=== PATIENT | female | born 1980 | race Caucasian/White ===

== ENCOUNTER 2018-12-01 00:33 | Emergency (ER) | payer SELFPAY ==
[~2018-12-01] VITALS: Ht 174 cm; Wt 82.0 kg
[~2018-12-01 00:33] MED LIST: AURALGAN OT; BACTRIM DS1 TAB PO; CORTISPORIN OTI10 ML AD; DOXYCYCL HYC100 MG PO; LORTAB 1010 MG PO; LORTAB5 PO; NAPROSYN500 MG PO; NO; ZITHROMAX250 MG PO
--- NOTE | 2018-12-01 01:00 | NUR ---
RT CALLED TO DRAW ARTERIAL BLOOD. PATIENT BLOOD PRESSURE 80/50. UNABLE TO DETECT THE ARTERY. MD INTUBATED THE PATIENT WITH A 7.5 ETT AT 24 CM OF THE LIPS. ETT PLACEMENT VERIFIED BY CO2 DETECTOR AND LISTENING OF BREATH SOUND. PATIENT WAS PLACED ON THE VENT WITH AC 16, 500 VOLUME, 100% AND PEEP OF 5. AFTER FEW MINUTES CODED.
[2018-12-01 02:30] LABS: ALBUMIN 3.1 g/dL (3.2-5.0); BILIRUBIN, TOTAL 3.3 mg/dL (0.0-1.4); CREATININE 1.4 mg/dL (0.5-1.0); TOTAL PROTEIN 6.6 g/dL (6.3-8.2)
[2018-12-01 02:41] LABS: POTASSIUM 4.6 mmol/l (3.5-5.1)
[2018-12-01 04:18] VITALS: BP 0/0
== END 2018-12-01 02:19 | disposition expired | DRG 297 ==
LOC: ED 00:33
PROVIDERS: Family Medicine
PROC: 0BH17EZ Insertion of Endotracheal Airway into Trachea, Via Natural or Artificial Opening (ICD-10-PCS; principal; 2018-12-01)
PROC: 06HM33Z Insertion of Infusion Device into Right Femoral Vein, Percutaneous Approach (ICD-10-PCS; 2018-12-01)
PROC: 5A12012 Performance of Cardiac Output, Single, Manual (ICD-10-PCS; 2018-12-01)
DX: I46.9 Cardiac arrest, cause unspecified (principal); I42.8 Other cardiomyopathies; I34.0 Nonrheumatic mitral (valve) insufficiency; I11.0 Hypertensive heart disease with heart failure; I50.9 Heart failure, unspecified; T50.906A Underdosing of unspecified drugs, medicaments and biological substances, initial encounter; Z91.120 Patient's intentional underdosing of medication regimen due to financial hardship; Z86.718 Personal history of other venous thrombosis and embolism